=== PATIENT | female | born 1990 | race Two or more races ===

== ENCOUNTER 2018-09-26 19:52 | Emergency (ER) | payer OTHER ==
[~2018-09-26] VITALS: Ht 152.4 cm; Wt 77.1 kg
[2018-09-26] MEDS ORDERED: Acetaminophen 500mg (ES) tab ORAL ONE (20:45)
--- NOTE | 2018-09-26 20:59 | Emergency Room Report ---
History of Present Illness General Chief Complaint: Laceration Source: Patient Present Illness HPI 28-year-old female with no significant past medical history here for laceration to the right hand after trying to open a wine bottle at work. Minimal bleeding noted at the site of laceration. Patient is reporting intermittent 7 out of 10 pain at the site of the wound with no radiation. Denies tingling and numbness. Denies all other injury does not recall any broken glass on her hand. Did not take anything for pain and came straight from work. Denies shortness of breath, chest pain, palpitation, nausea vomiting. Range of motion is intact Allergies: Coded Allergies: IBUPROFEN (Verified Allergy, Unknown, Nausea, 09/26/18) Patient History Past Medical History: see triage record Past Surgical History: none Last Menstrual Period: 09/24/2018 Now: No : 1 Para: 1 Immunizations: UTD Reviewed Nursing Documentation: PMH: Agreed; PSxH: Agreed Nursing Documentation-PMH Past Medical History: No Stated History Review of Systems All Other Systems: negative except mentioned in HPI Physical Exam Vital Signs Date Time Temp Pulse Resp B/P (MAP) Pulse Ox O2 Delivery O2 Flow Rate FiO2 09/26/18 20:05 97.9 70 18 123/82 97 Sp02 EP Interpretation: reviewed, normal General Appearance: normal inspection, well appearing, no apparent distress Head: normocephalic, atraumatic Eyes: bilateral eye normal inspection, bilateral eye PERRL ENT: normal ENT inspection, normal pharynx Neck: normal inspection, full range of motion, supple Respiratory: normal inspection, lungs clear, normal breath sounds, no respiratory distress, no retraction, no wheezing Cardiovascular #1: normal inspection, regular rate, rhythm, no edema, no murmur Cardiovascular #2: 2+ radial (R), 2+ radial (L) Gastrointestinal: normal inspection, non tender, soft Rectal: deferred Genitourinary: deferred Musculoskeletal: back normal, digits/nails normal, normal range of motion, other - lac web space right hand bw thumb and index finger Neurologic: normal inspection, alert, oriented x3 Psychiatric: normal inspection, judgement/insight normal, memory normal Skin: warm/dry, well hydrated, laceration - right hand web space bw thumb and index finger Lymphatic: normal inspection, no adenopathy Procedures Laceration/Wound Repair Laceration/Wound Repair : Consent: Verbal Wound Location: upper extremity Wound's Depth, Shape: superficial Wound Explored: clean Betadine Prep?: Yes Anesthesia: 1% Lidocaine Volume Anesthetic (ccs): 5 Wound Repaired With: sutures Suture Size/Type: 6:0, 5:0, proline Number of Sutures: 4 Layer Closure?: Yes Sterile Dressing Applied?: Yes Splint Applied?: No Sling Applied?: No Patient Tolerated: Well Complications: None Medical Decision Making PA Attestation all diagnosis and treatment plans are reviewed and discussed with my supervising physician Dr. Mena Diagnostic Impression: Primary Impression: Laceration of right hand ER Course 28-year-old female with no significant past medical history here for laceration to the right hand after trying to open a wine bottle at work. Minimal bleeding noted at the site of laceration. Patient is reporting intermittent 7 out of 10 pain at the site of the wound with no radiation. Denies tingling and numbness. Denies all other injury does not recall any broken glass on her hand. Did not take anything for pain and came straight from work. Denies shortness of breath, chest pain, palpitation, nausea vomiting. Range of motion is intact Ddx considered but are not limited to superficial lac to right hand, deep lac, glass in hand Vital signs: are WNL, pt. is afebrile H&PE are most consistent with superficial lac right hand ORDERS: right hand Xray, sutures , wound dressing, keflex 500, bactroban, naproxen 500 ED INTERVENTIONS:sutures and wound dressing DISCHARGE: At this time pt. is stable for d/c to home. Will provide printed patient care instructions, and any necessary prescriptions. Care plan and follow up instructions have been discussed with the patient prior to discharge. Other X-Ray Diagnostic Results Other X-Ray Diagnostic Results : X-Ray ordered: right hand # of Views/Limited Vs Complete: 2 View Indication: Pain EP Interpretation: Yes PA Xray: Interpretation reviewed, by supervising MD, and agrees with findings. Interpretation: no dislocation, no soft tissue swelling, no fractures, other - no FB Impression: No acute disease Electronically Signed by: nathalie CRAWFORD [employer] Text FINDINGS: Bones/joints: Unremarkable. No acute fracture. No dislocation. Soft tissues: Unremarkable. No radiopaque foreign body. IMPRESSION: Normal right hand x-rays. Last Vital Signs Date Time Temp Pulse Resp B/P (MAP) Pulse Ox O2 Delivery O2 Flow Rate FiO2 09/26/18 20:05 97.9 70 18 123/82 97 Disposition: HOME, SELF-CARE Condition: Stable Scripts Acetaminophen* (TYLENOL EXTRA STRENGTH*) 500 Mg Tablet 500 MG ORAL Q6H PRN for Mild Pain/Temp > 100.5, #30 TAB 0 Refills Prov: Nathalie Amador 09/26/18 Mupirocin (BACTROBAN CR) 15 Gm Cream..g. 1 APPLIC TOPIC THREE TIMES A DAY, #15 GM Prov: Nathalie Amador 09/26/18 Cephalexin* (KEFLEX*) 500 Mg Capsule 500 MG ORAL EVERY 12 HOURS for 7 Days, #14 CAP 0 Refills Prov: Nathalie Amador 09/26/18 Referrals: NOT CHOSEN IPA/,REFERRING (PCP) Patient Instructions: Laceration Care, Adult Additional Instructions: concludes using right hand doing strenuous physical activity, avoid lifting heavy objects, take medications as directed Nathalie Amador Sep 26, 2018 20:59
[2018-09-26 21:45] VITALS: BP 129/76
[2018-09-26] MEDS ORDERED: CEPHALEXIN500 MG ORAL (21:53)
[2018-09-26] MEDS ORDERED: BACTROBAN15 GM TOPIC (21:53)
[2018-09-26] MEDS ORDERED: TYLENOL EXTRA500 MG ORAL (21:53)
[2018-09-26 22:00] VITALS: BP 129/76
== END 2018-09-26 22:00 | disposition home or self-care (01) ==
LOC: EMR 20:27
DX: S61.411A Laceration without foreign body of right hand, initial encounter (principal); W26.8XXA Contact with other sharp object(s), not elsewhere classified, initial encounter; Y92.69 Other specified industrial and construction area as the place of occurrence of the external cause; Z88.8 Allergy status to other drugs, medicaments and biological substances
CPT/HCPCS: 99283

== ENCOUNTER 2018-10-03 14:17 | Emergency (ER) | payer OTHER ==
[~2018-10-03] VITALS: Ht 152.4 cm; Wt 77.1 kg
[~2018-10-03 14:17] MED LIST: BACTROBAN15 GM TOPIC; CEPHALEXIN500 MG ORAL; TYLENOL EXTRA500 MG ORAL
[2018-10-03 14:23] VITALS: BP 124/71
[2018-10-03] MEDS ORDERED: BACITRACIN-P28.35 GM TP (14:52)
--- NOTE | 2018-10-03 14:52 | Emergency Room Report ---
History of Present Illness General Chief Complaint: Wound Recheck/Suture Removal Source: Patient Present Illness HPI 28-year-old female presents to the emergency department for suture removal status post wound closure one week ago. Patient reports laceration was on the right hand she denies bleeding, erythema, warmth, fevers, chills. Patient is up -to-date with tetanus vaccination she denies pain or tenderness at the suture site. Patient has no other medical complaints at this time. Allergies: Coded Allergies: IBUPROFEN (Verified Allergy, Unknown, Hives, 10/03/18) Patient History Past Medical History: see triage record Past Surgical History: none Pertinent Family History: none Last Menstrual Period: 09/21/2018 Now: No Reviewed Nursing Documentation: PMH: Agreed; PSxH: Agreed Nursing Documentation-PMH Past Medical History: No Stated History Review of Systems All Other Systems: negative except mentioned in HPI Physical Exam Vital Signs Date Time Temp Pulse Resp B/P (MAP) Pulse Ox O2 Delivery O2 Flow Rate FiO2 10/03/18 14:23 98.4 60 17 124/71 98 Room Air Sp02 EP Interpretation: reviewed, normal General Appearance: no apparent distress, alert, GCS 15, non-toxic Head: normocephalic, atraumatic Eyes: bilateral eye normal inspection, bilateral eye PERRL ENT: hearing grossly normal, normal voice Neck: full range of motion Respiratory: lungs clear, normal breath sounds, speaking full sentences Cardiovascular #1: regular rate, rhythm, normal capillary refill Musculoskeletal: back normal, gait/station normal, normal range of motion, non- tender Neurologic: alert, oriented x3, responsive, motor strength/tone normal, sensory intact, speech normal, grossly normal Psychiatric: judgement/insight normal Skin: normal color, no rash, warm/dry, well hydrated, wd healing/no infection noted - interdigital web space of thumb and 1st finger of the right hand. sutures in place. Lymphatic: no adenopathy Medical Decision Making PA Attestation Dr. benites is my supervising Physician whom patient management has been discussed with. Diagnostic Impression: Primary Impression: Encounter for removal of sutures ER Course 28-year-old female presents to the emergency department for suture removal status post wound closure one week ago. Patient reports laceration was on the right hand she denies bleeding, erythema, warmth, fevers, chills. Patient is up -to-date with tetanus vaccination she denies pain or tenderness at the suture site. Patient has no other medical complaints at this time. Ddx considered but are not limited to laceration, tendon injury, cellulitis, dehiscence. Vital signs: are WNL, pt. is afebrile H&PE are most consistent with: healed laceration of the Right hand at web of the thumb ORDERS: none required at this time, the diagnosis is clinical ED INTERVENTIONS: - 4 Sutures removed. DISCHARGE: At this time pt. is stable for d/c to home. Will provide printed patient care instructions, and any necessary prescriptions. Care plan and follow up instructions have been discussed with the patient prior to discharge. Last Vital Signs Date Time Temp Pulse Resp B/P (MAP) Pulse Ox O2 Delivery O2 Flow Rate FiO2 10/03/18 14:23 98.4 60 17 124/71 98 Room Air Disposition: HOME, SELF-CARE Condition: Stable Scripts Bacitracin/Polymyxin B Sulfate (BACITRACIN-POLYMYXIN OINTMENT) 28.35 Gm Oint...g. 1 APPLIC TP BID, #28.3 GM Prov: Bernie Granado 10/03/18 Patient Instructions: Suture Removal, Care After Additional Instructions: Take any previously prescribed medications as directed. Follow up with a Primary Care Provider in 3-5 days, even if your symptoms have resolved. --Please review list of primary care clinics, if you do not already have a primary care provider Return sooner to ED if new symptoms occur, or current symptoms become worse. - Please note that this Emergency Department Report was dictated using [employer] inser[employer] technology software, occasionally this can lead to erroneous entry secondary to interpretation by the dictation equipment. Bernie Granado Oct 03, 2018 14:52
[2018-10-03 15:20] VITALS: BP 131/78
== END 2018-10-03 15:20 | disposition home or self-care (01) ==
LOC: EMR 14:57
DX: S61.411A Laceration without foreign body of right hand, initial encounter (principal); Z48.02 Encounter for removal of sutures; X58.XXXA Exposure to other specified factors, initial encounter; Y92.9 Unspecified place or not applicable; Z88.6 Allergy status to analgesic agent
CPT/HCPCS: 99282